=== PATIENT | male | born 1950 | race Caucasian/White ===

== ENCOUNTER 2022-03-16 20:33 | Emergency (ER) | payer OTHER, SELFPAY ==
--- NOTE | ~2022-03-16 | CT_ITS ---
EXAMINATION: CT HEAD WITHOUT CONTRAST CT CERVICAL SPINE WITHOUT CONTRAST CLINICAL INFORMATION: Headache. Atraumatic neck pain. COMPARISON: None. TECHNIQUE: Multidetector CT imaging of the head and cervical spine was performed without the use of intravenous contrast. Multiplanar reformats are reviewed. This CT examination was performed using dose optimization techniques as appropriate, variously including the following: *Automated exposure control *Adjustment of mA and/or kV according to patient size (this includes techniques or standardized protocols for targeted exams where dose is matched to indication/reason for exam; i.e. extremities or head) *Use of iterative reconstruction technique DLP: 995 mGy-cm. FINDINGS: There is no evidence of acute intracranial hemorrhage or territorial infarction. No abnormal mass effect or midline shift is seen. Tavarez to white matter differentiation is well preserved. No extra-axial fluid collections are identified. The ventricles are normal in size. There are couple lacunar infarcts within the right basal ganglia, chronic in appearance. Cavernous carotid calcifications. The osseous structures and soft tissues are normal. The mastoid air cells and visualized portions of the paranasal sinuses are well-aerated. Small rightward projecting osseous septal spur. Atlantooccipital alignment is maintained. The vertebral bodies and posterior elements align normally. No acute fracture or subluxation. Vertebral body heights are maintained. Endplate osteophytes and disc herniations present throughout the cervical spine. Facet arthropathy present throughout cervical spine with ankylosis of the bilateral posterior articular pillar at C2-C3. There are varying degrees of foraminal narrowing throughout the cervical spine, most notably at C5-C6 moderate to severe on the right and moderate on the left. The paraspinal soft tissues are unremarkable. The imaged lung apices are clear CT/CT cervical spine wo con IMPRESSION: No acute intracranial pathology. No cervical spine fracture or malalignment.
[2022-03-16 20:44] VITALS: BP 170/82; PULSE 94; RESP 18; TEMP 37.1; O2SAT 97; BMI 26.6
[2022-03-16 20:53] LABS: MANUAL DIFF FLAG NO
[2022-03-16 20:54] LABS: Basophils Absolute Auto 0.1 X10*3/uL (0.0-0.2); Basophils Percent Auto 0.6 % (0-2); Eosinophils Absolute Auto 1.5 X10*3/uL (0.0-0.4); Eosinophils Percent Auto 11.1 % (0-4); Hematocrit 37.4 % (42.0-52.0); Hemoglobin 12.4 g/dl (14.0-18.0); Imm Gran Abs Auto 0.03 X10*3/uL (0.00-0.03); Imm Gran Pct Auto 0.2 % (0.0-0.4); Lymphocytes Percent Auto 21.3 % (20-40); Mean Corpuscular HGB Conc 33.2 g/dl (31.0-36.0); Mean Corpuscular Hemoglobin 29.6 pg (27.0-33.0); Mean Corpuscular Volume 89.3 fL (80.0-98.0); Mean Platelet Volume 10.7 fL (9.4-12.4); Monocytes Absolute Auto 1.2 X10*3/uL (0.1-1.2); Monocytes Percent Auto 8.9 % (2-11); Neutrophils Percent Auto 57.9 % (45-73); Platelet Count 370 X10*3/uL (160-400); Red Blood Count 4.19 X10*6/uL (4.60-5.80); Red Cell Distribution Width 12.9 % (11.0-16.0); White Blood Count 13.9 X10*3/uL (4.8-10.8)
[2022-03-16 21:07] LABS: Anion Gap 14 (12-20); Blood Urea Nitrogen 19 mg/dL (9-16); Calcium 9.2 mg/dL (8.4-10.2); Carbon Dioxide 23 mmol/L (22-29); Chloride 103 mmol/L (96-108); Creatinine Clr Calc Pharmacy 54.9; Estimated Glomerular Filt Rate > 60; Glucose Random 160 mg/dL (60-115); Potassium 4.5 mmol/L (3.3-5.1); Sodium 135 mmol/L (135-145)
[2022-03-17 00:16] VITALS: BP 171/75; PULSE 80; RESP 18; O2SAT 98
--- NOTE | 2022-03-17 00:39 | ED_ITS ---
HPI - Neck Pain/Injury General Chief Complaint: General Medical Stated Complaint: neck pain, can't turn head Time Seen by Provider: 03/17/22 00:11 Source: patient Mode of arrival: ambulatory Limitations: no limitations History of Present Illness HPI Narrative: Patient with significant past medical history complaining of neck pain and headache for last 2 days no trauma no paresthesia no hand weakness no nausea no vomiting no fever or chills patient denies any sore throat Related Data Previous Rx's Medication Instructions Recorded ibuprofen 600 mg tablet 600 mg PO Q6H PRN pain #20 tabs 03/17/22 Allergies Allergy/AdvReac Type Severity Reaction Status Date / Time No Known Allergies Allergy Verified 03/16/22 20:43 [No Known Allergies*] Review of Systems Review of Systems: Yes all other systems are reviewed and are negative [facility] Social History Social History Advance Directives: No Advance Directives Information Provided: No Physical Exam Vital Signs: Vital Signs: Last Vital Signs Temp 98.8 F 03/16/22 20:44 Pulse 73 03/17/22 02:47 Resp 18 03/17/22 01:38 BP 132/66 03/17/22 02:47 Pulse Ox 97 03/17/22 02:47 O2 Del Method 03/17/22 02:47 BMI result Body Mass Index 26.6 Appearance: Alert. Oriented X3. No acute distress. Eyes: PERRLA, No Nystagmus ENT: Pharynx normal. Oral Mucosa moist Neck: Normal inspection. Diffuse muscle spasm no midline tenderness no cervical lymphadenopathy CVS: Normal heart rate and rhythm. Pulses normal. Respiratory: No respiratory distress. Equal air entry bilateral, no wheezing/rales/rhonchi Abdomen: Soft and nontender. Bowel sounds are present, no mass palpable, no CVA tenderness Skin: Skin warm and dry. Normal skin color. Normal skin turgor. Extremities: No lower extremity edema. No calf tenderness Neuro: Oriented X 3. No motor deficit. No sensory deficit.No cerebellar signs , cranial nerves II-XII intact MDM - Neck Pain/Injury Differential Diagnosis Differential diagnosis: Likely disc disorder of cervical region and strain of neck muscle Lab Data Attestation: I reviewed the patient's lab results. Result diagrams: 03/16/22 20:49 03/16/22 20:49 Labs: Lab Results 03/16/22 03/16/22 Range/Units 20:49 20:49 WBC 13.9 H (4.8-10.8) X10*3/uL RBC 4.19 L (4.60-5.80) X10*6/uL Hgb 12.4 L (14.0-18.0) g/dl Hct 37.4 L (42.0-52.0) % MCV 89.3 (80.0-98.0) fL MCH 29.6 (27.0-33.0) pg MCHC 33.2 (31.0-36.0) g/dl RDW 12.9 (11.0-16.0) % Plt Count 370 (160-400) X10*3/uL MPV 10.7 (9.4-12.4) fL Immature Gran % (Auto) 0.2 (0.0-0.4) % Neut % (Auto) 57.9 (45-73) % Lymph % (Auto) 21.3 (20-40) % [place]cy % (Auto) 8.9 (2-11) % Eos % (Auto) 11.1 H (0-4) % Baso % (Auto) 0.6 (0-2) % Lymph # (Auto) 3.0 (1.2-4.9) X10*3/uL [place] # (Auto) 1.2 (0.1-1.2) X10*3/uL Eos # (Auto) 1.5 H (0.0-0.4) X10*3/uL Baso # (Auto) 0.1 (0.0-0.2) X10*3/uL Abs Immat Gran (auto) 0.03 (0.00-0.03) X10*3/uL Absolute Neuts (auto) 8.0 (2.0-8.3) x10*3/uL Absolute Nucleated RBC 0.000 (0.0-0.012) X10*3/uL Nucleated RBC % (auto) 0.0 (0.0-0.2) /100WBC Sodium 135 (135-145) mmol/L Potassium 4.5 (3.3-5.1) mmol/L Chloride 103 (96-108) mmol/L Carbon Dioxide 23 (22-29) mmol/L Anion Gap 14 (12-20) BUN 19 H (9-16) mg/dL Creatinine 1.17 (0.5-1.4) mg/dL Estim Creat Clear Calc 54.9 Estimated GFR > 60 Random Glucose 160 H (60-115) mg/dL Calcium 9.2 (8.4-10.2) mg/dL Discharge Plan Discharge Clinical Impression: Cervical paraspinal muscle spasm Patient Disposition: Home, Self-Care Instructions: Cervical Sprain (ED) Additional Instructions: Likely have muscle spasm secondary to strain Take ibuprofen for pain , apply ice pack Prescriptions: New ibuprofen 600 mg tablet 600 mg PO Q6H PRN (Reason: pain) Qty: 20 0RF Interventions: ED Discharge Assessment Last Done: 03/17/22 02:49 Discharge Date/Time: 03/17/22 02:49
[2022-03-17] MEDS: oxyCODONE HCl Immed Release 5 MG TABLET PO (00:53)
[2022-03-17 01:38] VITALS: BP 155/77; PULSE 73; RESP 18; O2SAT 98
[2022-03-17 02:47] VITALS: BP 132/66; PULSE 73; O2SAT 97
== END 2022-03-17 02:49 | disposition home or self-care (01) ==
PROVIDERS: Emergency Medicine; Emergency Provider Internal Medicine; PCP Internal Medicine
DX: M62.830 Muscle spasm of back (principal); R51.9 Headache, unspecified
CPT/HCPCS: 36415; 70450; 72125; 80048; 85025; 99284

== ENCOUNTER 2025-06-16 08:59 | Outpatient (AMB) | payer MEDICAID, SELFPAY ==
--- NOTE | 2025-06-16 09:11 | MHC.PC.OV ---
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[employer] Food Products Language: Bur[place]ian Accompanied by: Self / Same As Patient Allergies No Known Allergies (No Known Allergies*) Allergy (Verified 06/16/25 09:13) Medication List - Last Reconciled 06/16/25 by Lele Ferreira MD acetaminophen (Tylenol Extra Strength) 1,000 mg PO Q6H PRN atorvastatin (Lipitor) 40 mg PO DAILY ciclopirox 0.77% 1 appl topical BID ibuprofen 600 mg PO Q6H PRN levothyroxine (Synthroid) 75 mcg PO DAILY lisinopril 10 mg PO DAILY metformin 1,000 mg PO BID Tobacco use date assessed: 06/16/25 Fall risk assessment: No Falls in past year Last assessed Fall Risk: 06/16/25 Dental Screening Dental Screen Date: 06/16/25 Did you have a dental visit in the last 12 months?: No Did you have a dental problem in the last 6 months where you did not have access to dental care?: No Was dental information given to patient?: No HPI HPI Comments History of Present Illness Details The patient is a 74-year-old male presenting with medication refills and to establish care. The patient has symptoms affecting his nails and joints, with chronic joint pain in the fingers and knees, and dry skin on the knees. He uses Tylenol for pain, which provides minimal relief. He has diabetes mellitus, managed with metformin, and suspects it may affect his nail condition. The patient also has hypertension, hyperlipidemia, and hypothyroidism, treated with lisinopril, atorvastatin, and Synthroid respectively. He has a significant smoking history, having smoked for 20 years, but quit 15 years ago. He has not undergone a CT scan of the chest or an abdominal ultrasound for aortic aneurysm screening. Family history includes lung cancer in his father, who was a smoker. 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 1. Little interest or pleasure in doing things: several days 2. Feeling down, depressed, or hopeless: several days 3. Trouble falling or staying asleep, or sleeping too much: several days 4. Feeling tired or having little energy: several days 5. Poor appetite or overeating: several days 6. Feeling bad about yourself - or that you are a failure or have let yourself or your family down: several days 7. Trouble concentrating on things, such as reading the newspaper or watching television: more than half the days 8. Moving or speaking so slowly that other people could have noticed. Or the opposite - being so fidgety or restless that you have been moving around a lot more than usual: several days 9. Thoughts that you would be better off or of hurting yourself in some way: not at all Total score: 9 Source: Developed by Drs. Ortiz Sierra, Radha Gordon, Rizwan Kay and colleagues, with an educational rachell from [employer]. Thrive Questionnaire Date Thrive assessed: 06/16/25 I am a: Patient What is your living situation today?: I have a steady place to live Within the past 12 months, did the food you bought not last and you didn't have the money to get more?: Never true Within the past 12 months, did you worry whether your food would run out before you got money to buy more?: Never true Do you have trouble paying for medicines?: No Do you have trouble getting transportation to medical appointments?: Yes Do you have trouble paying your heating and electricity bill?: No Do you have trouble taking care of your child, family member or friend?: No Do you have trouble with day-to-day activities such as bathing, preparing meals, shopping, managing finances, etc.?: No Are you currently unemployed and looking for a job?: Yes Are you interested in more education?: No Please select the resources that you would like help with: None Currently or been in a relationship where the following occur: No concerns reported THRIVE Score: 1 AUDIT C Alcohol Use Questionnaire (AUDIT-C) 1. How often do you have a drink containing alcohol?: Monthly or less 2. How many drinks containing alcohol do you have on a typical day when you are drinking?: 1 or 2 3. How often do you have six or more drinks on one occasion?: Never Total Score: 1 BRITTANEY-7 AMB Questionnaire BRITTANEY-7 Date BRITTANEY - 7 assessed: 06/16/25 Feeling nervous, anxious, or on edge: 2 = More than half the days Not being able to stop or control worryin = More than half the days Worrying too much about different things: 2 = More than half the days Trouble relaxin = More than half the days Being so restless that it is hard to sit still: 2 = More than half the days Becoming easily annoyed or irritable: 2 = More than half the days Feeling afraid as if something awful might happen: 1 = Several days Total BRITTANEY-7 score (0-4 normal; 5-9 mild; 10-14 moderate; 15-21 severe): 13 Source: Developed by Drs. Ortiz Sierra, Radha Gordon, Rizwan Kay and colleagues, with an educational rachell from [employer]. Review of Systems Const Details: Positives are in BOLD Constitutional: No Weight Change, No Fever, No Chills, No Night Sweats, No Fatigue, No Malaise ENT/Mouth: No Hearing Changes, No Ear Pain, No Nasal Congestion, No Sinus Pain, No Hoarseness, No sore throat, No Rhinorrhea, No Swallowing Difficulty Eyes: No Eye Pain, No Swelling, No Redness, No Foreign Body, No Discharge, No Vision Changes Cardiovascular: No Chest Pain, No SOB, No PND, No Dyspnea on Exertion, No Orthopnea, No Claudication, No Edema, No Palpitations Respiratory: No Cough, No Sputum, No Wheezing, No Smoke Exposure, No Dyspnea Gastrointestinal: No Nausea, No Vomiting, No Diarrhea, No Constipation, No Pain, No Heartburn, No Anorexia, No Dysphagia, No Hematochezia, No Melena, No Flatulence, No Jaundice Genitourinary: No Dysmenorrhea, No DUB, No Dyspareunia, No Dysuria, No Urinary Frequency, No Hematuria, No Urinary Incontinence, No Urgency, No Flank Pain, No Urinary Flow Changes, No Hesitancy Musculoskeletal: No Arthralgias, No Myalgias, No Joint Swelling, No Joint Stiffness, No Back Pain, No Neck Pain, No Injury History Skin: No Skin Lesions, No Pruritis, No Hair Changes, No Breast/Skin Changes, No Nipple Discharge Neuro: No Weakness, No Numbness, No Paresthesias, No Loss of Consciousness, No Syncope, No Dizziness, No Headache, No Coordination Changes, No Recent Falls Psych: No Anxiety/Panic, No Depression, No Insomnia, No Personality Changes, No Delusions, No Rumination, No SI/HI/AH/VH, No Social Issues, No Memory Changes, No Violence/Abuse Hx., No Eating Concerns Heme/Lymph: No Bruising, No Bleeding, No Transfusions History, No Lymphadenopathy Endocrine: No Polyuria, No Polydipsia, No Temperature Intolerance Physical exam (Primary Care) Vital Signs: Last Vital Signs Temp 97.1 F 06/16/25 09:12 Pulse 79 06/16/25 09:12 Resp 18 06/16/25 09:12 BP 156/60 H 06/16/25 09:12 Pulse Ox 96 06/16/25 09:12 Oxygen Delivery Method Room Air 06/16/25 09:12 BMI result Body Mass Index 25.2 Tobacco/Smoking Status: Tobacco use Status Tobacco use date assessed 06/16/25 06/16/25 09:33 Patient Tobacco Use Status Never used Tobacco 06/16/25 09:33 e-Cigarette/Vaping Use Never Used 06/16/25 09:33 PHQ-9: PHQ-9 Score PHQ-9: Total score 9 06/16/25 11:37 Thrive Assessment: Date of Thrive Assessment Date Thrive assessed 06/16/25 06/16/25 09:33 Currently or been in a relationship where the following occur: No concerns reported Const Other: Pertinent findings are in BOLD GENERAL APPEARANCE NAD, activity normal for age, well developed/ well nourished, no cyanosis, pallor, or diaphoresis. EYES lids/conjunctiva normal. EARS/NOSE/THROAT Mucous membranes moist, nares normal, lips/teeth normal uvula midline without oral pharyngeal erythema, exudate or swelling TMs normal bilaterally. No lymphangitis/lymphedema. HEAD/NECK normocephalic atraumatic, no facial trauma, neck is supple. RESPIRATORY respiratory effort normal, speaks in full sentences, no tripod position, no accessory muscle use. Lungs clear to auscultation without rhonchi, wheezes, rales CARDIAC Regular rate and rhythm, no edema. ABDOMINAL Soft, ND/NT. No evidence of fluid wave. No pulsatile masses on exam, rebound tenderness, Anderson sign or pain over Mcburney's point. MUSCLES/EXTREMITIES No abnormal range of motion, no swelling. SKIN Warm, pink and dry. No rashes, dermatoses, petechiae or lesions. NEUROLOGICAL Speech is clear and appropriate. Normal level of consciousness. Gait and coordination are normal. 5/5 strength in all extremities. PSYCH Normal mood and affect. Judgement/competence is appropriate Coding Level of Care Code New Pt Level 4 (54783) Diagnoses Primary hypertension I10 Hypertension type: primary hypertension Arthritis M19.90 Pitting of nails L60.8 Type 2 diabetes mellitus without complication, without long-term current use of insulin E11.9 Diabetes mellitus complication status: without complication Diabetes mellitus correction insulin use: without correction use Hyperlipidemia, unspecified hyperlipidemia type E78.5 Hyperlipidemia type: unspecified Hypothyroidism, unspecified type E03.9 Hypothyroidism type: unspecified Health care maintenance Z00.00 Assessment & Plan Assessment & Plan (1) HTN (hypertension): Code(s): I10 - Essential (primary) hypertension Category: Medical Qualifiers: Hypertension type: primary hypertension Qualified Code(s): I10 - Essential (primary) hypertension Plan: The patient's blood pressure management will continue with lisinopril, and regular monitoring will be advised. (2) Arthritis: Code(s): M19.90 - Unspecified osteoarthritis, unspecified site Category: Medical Plan: - Rheumatology referral for suspect psoriasis arthritis. (3) Pitting of nails: Code(s): L60.8 - Other nail disorders Category: Medical Plan: Continue previously prescribed cyclopirox for suspected fungal infection. - Might psoriasis, referred to rheumatology. (4) DM2 (diabetes mellitus, type 2): Code(s): E11.9 - Type 2 diabetes mellitus without complications Category: Medical Qualifiers: Diabetes mellitus complication status: without complication Diabetes mellitus meterman insulin use: without meterman use Qualified Code(s): E11.9 - Type 2 diabetes mellitus without complications Plan: - Repeat A1C ordered. - Continue Metformin. - Ophto referral for eye exam. - Podiatry referral for foot exam. (5) HLD (hyperlipidemia): Code(s): E78.5 - Hyperlipidemia, unspecified Category: Medical Qualifiers: Hyperlipidemia type: unspecified Qualified Code(s): E78.5 - Hyperlipidemia, unspecified Plan: Continue Atorvastatin. - Repeat labs ordered. (6) Hypothyroidism: Code(s): E03.9 - Hypothyroidism, unspecified Category: Medical Qualifiers: Hypothyroidism type: unspecified Qualified Code(s): E03.9 - Hypothyroidism, unspecified Plan: Continue Synthroid - Repeat labs ordered. (7) Health care maintenance: Code(s): Z00.00 - Encounter for general adult medical examination without abnormal findings Category: Medical Plan: HIV, HEP C, Hep B screening ordered. AAA US, CT chest ordered. Plan As above Orders: Orders Comprehensive Met. Panel Today Z00.00 - Encounter for general adult medical examination without abnormal findings Complete Blood Count Auto Diff Today Z00.00 - Encounter for general adult medical examination without abnormal findings CT lung screening Today Z72.0 - Tobacco use Hemoglobin A1c Today E11.9 - Type 2 diabetes mellitus without complications Lipid Panel Today E78.5 - Hyperlipidemia, unspecified Prostate Specific Antigen Today Z00.00 - Encounter for general adult medical examination without abnormal findings TSH reflex Free T4 Today E03.9 - Hypothyroidism, unspecified US abdominal aortic aneurysm Today Z72.0 - Tobacco use Referrals Rheumatology Referral L60.8 - Other nail disorders, M19.90 - Unspecified osteoarthritis, unspecified site Podiatry Referral E11.9 - Type 2 diabetes mellitus without complications Ophthalmology Referral E11.9 - Type 2 diabetes mellitus without complications
[2025-06-16 09:12] VITALS: BP 156/60; PULSE 79; RESP 18; TEMP 36.2; O2SAT 96; BMI 25.2
== END 2025-06-16 10:38 | disposition home or self-care (01) ==
LOC: HO.HMCH 09:00
PROVIDERS: PCP Internal Medicine; Visit Provider Internal Medicine
DX: I10 Essential (primary) hypertension (principal); M19.90 Unspecified osteoarthritis, unspecified site; L60.8 Other nail disorders; E11.9 Type 2 diabetes mellitus without complications; E78.5 Hyperlipidemia, unspecified; E03.9 Hypothyroidism, unspecified; Z00.00 Encounter for general adult medical examination without abnormal findings

== ENCOUNTER → 2025-06-16 08:59 | Outpatient (BNVA) | payer MEDICARE, MEDICAID, SELFPAY | PROVIDERS: Visit Provider Internal Medicine | DX: Z00.00 Encounter for general adult medical examination without abnormal findings (principal); I10 Essential (primary) hypertension; E78.5 Hyperlipidemia, unspecified; E03.9 Hypothyroidism, unspecified; M79.645 Pain in left finger(s); M79.644 Pain in right finger(s); M25.561 Pain in right knee; M25.562 Pain in left knee; M19.90 Unspecified osteoarthritis, unspecified site; L60.8 Other nail disorders; E11.9 Type 2 diabetes mellitus without complications | CPT/HCPCS: 96127; 99202 ==

== ENCOUNTER 2025-08-03 07:50 | Outpatient (REF) | payer OTHER, SELFPAY ==
[2025-08-03 10:48] LABS: Hematocrit 39.4 % (42.0-52.0); Hemoglobin 12.8 g/dl (14.0-18.0); Imm Gran Abs Auto 0.03 X10*3/uL (0.00-0.03); Imm Gran Pct Auto 0.2 % (0.0-0.4); Lymphocytes Absolute Auto 3.6 X10*3/uL (1.2-4.9); MANUAL DIFF FLAG SCAN; Mean Corpuscular HGB Conc 32.5 g/dl (31.0-36.0); Mean Corpuscular Hemoglobin 30.5 pg (27.0-33.0); Mean Corpuscular Volume 94.0 fL (80.0-98.0); NRBC Abs Auto 0.000 X10*3/uL (0.0-0.012); NRBC Pct Auto 0.0 /100WBC (0.0-0.2); Platelet Count 399 X10*3/uL (160-400); Red Blood Count 4.19 X10*6/uL (4.60-5.80); SCAN SMEAR FLAG 1; White Blood Count 12.6 X10*3/uL (4.8-10.8)
[2025-08-03 11:13] LABS: Alanine Aminotransferase 21 U/L (0-40); Albumin Level 4.5 g/dL (3.5-5.0); Alkaline Phosphatase 63 U/L (39-117); Anion Gap 11 (12-20); Aspartate Amino Transferase 26 U/L (5-37); Blood Urea Nitrogen 18 mg/dL (9-16); Calcium 9.1 mg/dL (8.4-10.2); Carbon Dioxide 27 mmol/L (22-29); Chloride 106 mmol/L (96-108); Cholesterol 206 mg/dL (<200); Estimated Glomerular Filt Rate > 60; HDL Cholesterol 49 mg/dL (>40); Potassium 4.4 mmol/L (3.3-5.1); Prostate Specific Antigen 0.76 ng/mL (<0.05-4.0); Sodium 140 mmol/L (135-145); Total Protein 7.6 g/dL (6.5-8.0); Triglycerides 166 mg/dL (<150)
== END 2025-08-03 07:51 | disposition home or self-care (01) ==
LOC: HO.10HDL 07:50
PROVIDERS: Visit Provider Internal Medicine
DX: Z00.00 Encounter for general adult medical examination without abnormal findings (principal); Z12.5 Encounter for screening for malignant neoplasm of prostate; E03.9 Hypothyroidism, unspecified; E78.5 Hyperlipidemia, unspecified; E11.9 Type 2 diabetes mellitus without complications
CPT/HCPCS: 36415; 80053; 80061; 83036; 84153; 84443; 85025

== ENCOUNTER 2025-08-07 08:21 | Outpatient (REF) | payer OTHER, SELFPAY ==
[2025-08-07 08:59] LABS: Reticulocytes Absolute 0.087 X10*6/uL (0.026-0.095)
[2025-08-07 09:30] LABS: Iron 69 mcg/dL (45-160); Percent Iron Saturation 27 % (15-50); Total Iron Binding Capacity 254 mcg/dL (228-428); Unsaturated Iron Binding 185 ug/dL
[2025-08-07 10:00] LABS: Folate 7.2 ng/mL (> or = 4.0); Vitamin B12 615 pg/mL (200-900)
== END 2025-08-07 08:22 | disposition home or self-care (01) ==
LOC: HO.LAB 08:21
PROVIDERS: PCP Internal Medicine; Visit Provider Internal Medicine
DX: Z13.6 Encounter for screening for cardiovascular disorders (principal); D64.9 Anemia, unspecified
CPT/HCPCS: 36415; 82607; 82746; 83090; 83540; 83921; 85045

== ENCOUNTER 2025-09-08 11:12 | Outpatient (AMB) | payer OTHER, SELFPAY ==
--- NOTE | 2025-09-08 11:18 | MHC.PC.OV ---
"Vital Signs 09/08/25 11:22 Height 5 ft 7 in Weight 170 lb 6 oz BMI 26.7 BP 160/76 H Blood Pressure Location Rt brachial Position Sitting Pulse 89 Pulse Source Pulse Oximeter Temp 97.3 F Temp Source Temporal Artery Scan Pulse Oximetry (%) 98 Oxygen Delivery Method Room Air Intake Visit Reasons: follow up Intake Note: Patient is here to follow up on DM, HLD, Hypothyroidism. Clinical Transformation Specialist Required: No Chemical Processing Technician: Not Required per policy Accompanied by: Self / Same As Patient Allergies No Known Allergies (No Known Allergies*) Allergy (Verified 09/08/25 11:21) Medication List - Last Reconciled 09/08/25 by Lele Ferreira MD acetaminophen (Tylenol Extra Strength) 1,000 mg (2 x 500 mg) PO Q6H PRN 3 months atorvastatin (Lipitor) 80 mg (2 x 40 mg) PO DAILY 3 months [Cane As directed] ciclopirox 0.77% 1 appl topical BID 3 months [Grab bars As directed] ibuprofen 600 mg PO Q6H PRN levothyroxine (Synthroid) 75 mcg PO DAILY 3 months lisinopril 10 mg PO DAILY 3 months metformin 1,000 mg PO BID 3 months [Shower Chair As directed] Tobacco use date assessed: 09/08/25 Fall risk assessment: No Falls in past year Last assessed Fall Risk: 09/08/25 Dental Screening Dental Screen Date: 06/16/25 HPI HPI Comments History of Present Illness Details The patient is a 74 year old M with PMH of HTN, HLD, nail pitting, back pain, hypothyroidism, and DM presenting for management of chronic conditions including back pain, depression, and high blood pressure. The patient has a history of a herniated disc, which causes significant discomfort and limitations in daily activities. The associated pain affects the lower back, neck, and right leg. The patient previously underwent physical therapy, which did not provide any benefit, and declines surgical intervention. The patient reports a recent onset of depression and requested medication for it. The patient links the depression to a reluctance to leave home, which the patient believes contributes to an elevated blood pressure. The patient denies any thoughts of self-harm or harming others. Other chronic conditions include diabetes and high cholesterol, for which the patient is on treatment. The patient also has a history of psoriasis and leukocytosis, with a lab result of 12.6 noted in 2024. The nails on the patient's hands are reportedly improving. Previous referrals to rheumatology and for a colonoscopy were canceled because the patient did not have insurance at the time. An order for a cane and bathroom chair was also placed, but the items were never received. 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 pain Arthritis of neck Surgical History H/O splenectomy Social History Household Members: Children Housing: Apartment Alcohol intake: never Patient Tobacco Use Status: Former Tobacco user Tobacco use type: Cigarette e-Cigarette/Vaping Use: Never Used Second Hand Smoke Exposure: Yes service: No Current occupational status: retired Current occupational exposures/hazards: No Cognitive needs: Yes Hearing needs: Yes Vision needs: Yes Questionnaire Thrive Questionnaire Date Thrive assessed: 06/16/25 I am a: Patient What is your living situation today?: I have a steady place to live Within the past 12 months, did the food you bought not last and you didn't have the money to get more?: Never true Within the past 12 months, did you worry whether your food would run out before you got money to buy more?: Never true Do you have trouble paying for medicines?: No Do you have trouble getting transportation to medical appointments?: Yes Do you have trouble paying your heating and electricity bill?: No Do you have trouble taking care of your child, family member or friend?: No Do you have trouble with day-to-day activities such as bathing, preparing meals, shopping, managing finances, etc.?: No Are you currently unemployed and looking for a job?: Yes Are you interested in more education?: No Please select the resources that you would like help with: None Currently or been in a relationship where the following occur: No concerns reported THRIVE Score: 1 BRITTANEY-7 AMB Questionnaire BRITTANEY-7 Date BRITTANEY - 7 assessed: 06/16/25 Source: Developed by Drs. Ortiz Sierra, RadhaRizwan Early and colleagues, with an educational rachell from [employer]. Review of Systems Const Details: As per HPI. Physical exam (Primary Care) Vital Signs: Last Vital Signs Temp 97.3 F 09/08/25 11:22 Pulse 89 09/08/25 11:22 BP 160/76 H 09/08/25 11:22 Pulse Ox 98 09/08/25 11:22 Oxygen Delivery Method Room Air 09/08/25 11:22 BMI result Body Mass Index 26.7 Tobacco/Smoking Status: Tobacco use Status Tobacco use date assessed 09/08/25 09/08/25 11:21 Patient Tobacco Use Status Former Tobacco user 09/08/25 11:19 Tobacco use type Cigarette 09/08/25 11:19 e-Cigarette/Vaping Use Never Used 09/08/25 11:19 Thrive Assessment: Date of Thrive Assessment Date Thrive assessed 06/16/25 09/08/25 11:19 Currently or been in a relationship where the following occur: No concerns reported Const Other: Pertinent findings are in BOLD GENERAL APPEARANCE NAD, activity normal for age, well developed/ well nourished, no cyanosis, pallor, or diaphoresis. EYES lids/conjunctiva normal. EARS/NOSE/THROAT Mucous membranes moist, nares normal, lips/teeth normal uvula midline without oral pharyngeal erythema, exudate or swelling TMs normal bilaterally. No lymphangitis/lymphedema. HEAD/NECK normocephalic atraumatic, no facial trauma, neck is supple. RESPIRATORY respiratory effort normal, speaks in full sentences, no tripod position, no accessory muscle use. Lungs clear to auscultation without rhonchi, wheezes, rales CARDIAC Regular rate and rhythm, no edema. ABDOMINAL Soft, ND/NT. No evidence of fluid wave. No pulsatile masses on exam, rebound tenderness, Anderson sign or pain over Mcburney's point. MUSCLES/EXTREMITIES No abnormal range of motion, no swelling. SKIN Warm, pink and dry. No rashes, dermatoses, petechiae or lesions. Nail pitting. NEUROLOGICAL Speech is clear and appropriate. Normal level of consciousness. Gait and coordination are normal. 5/5 strength in all extremities. PSYCH Normal mood and affect. Judgement/competence is appropriate Coding Level of Care Code Est Pt Level 4 (12945) Diagnoses Current moderate episode of major depressive disorder, unspecified whether recurrent F32.1 Major depression recurrence: unspecified whether recurrent Active/Remission status: currently active Major depression episode severity: moderate Leukocytosis D72.829 Pitting of nails L60.8 Arthritis M19.90 Tobacco consumption Z72.0 Type 2 diabetes mellitus without complication, without long-term current use of insulin E11.9 Diabetes mellitus complication status: without complication Diabetes mellitus exterminator helper insulin use: without exterminator helper use Primary hypertension I10 Hypertension type: primary hypertension Herniated disc, cervical M50.20 Time Spent (min) 45 Assessment & Plan Assessment & Plan (1) MDD (major depressive disorder): Code(s): F32.9 - Major depressive disorder, single episode, unspecified Category: Medical Qualifiers: Major depression recurrence: unspecified whether recurrent Active/Remission status: currently active Major depression episode severity: moderate Qualified Code(s): F32.1 - Major depressive disorder, single episode, moderate Plan: - Prescribed duloxetine 20 mg to be taken two times per day to help with mood. - A referral will be placed for psychiatry. - Patient was previously referred to counseling but he was never able to see them due to insurance problems. - Patient denies any SI or HI. (2) Leukocytosis: Code(s): D72.829 - Elevated white blood cell count, unspecified Category: Medical Plan: Repeat labs ordered. And depending on repeat labs we will consider Hematology referral. Patient does not have any current signs or symptoms of infection. He has suspected psoriasis and rheumatolgoy referral was placed. (3) Pitting of nails: Code(s): L60.8 - Other nail disorders Category: Medical Plan: Continue Ciclopirox as the patient found it helpful. Psoriasis suspected vs fungal infection. Prior referral to rheumatology was not completed due to insurance issues. New referral to rheumatology placed. (4) Arthritis: Code(s): M19.90 - Unspecified osteoarthritis, unspecified site Category: Medical Plan: Suspected psoriasis arthritis. Rheumatology referral pending. Continue Ibuprofen 600 mg Q6 for pain abd Tylenol 1000 mg Q6hr PRN. (5) Tobacco consumption: Code(s): Z72.0 - Tobacco use Category: Social Hx Plan: Pulm referral placed for lung cancer screening. (6) DM2 (diabetes mellitus, type 2): Code(s): E11.9 - Type 2 diabetes mellitus without complications Category: Medical Qualifiers: Diabetes mellitus complication status: without complication Diabetes mellitus penitentiary insulin use: without penitentiary use Qualified Code(s): E11.9 - Type 2 diabetes mellitus without complications Plan: Continue Metformin. Podiatry referral. Ophthalmo referral placed. (7) HTN (hypertension): Code(s): I10 - Essential (primary) hypertension Category: Medical Qualifiers: Hypertension type: primary hypertension Qualified Code(s): I10 - Essential (primary) hypertension Plan: Patient's blood pressure continues to be elevated. Started the patient on Amlodipine 5 mg. Continue Lisinopril 10 mg. (8) Herniated disc, cervical: Code(s): M50.20 - Other cervical disc displacement, unspecified cervical region Category: Medical Plan: - Prescribed gabapentin for pain management. - The starting dose is 100 mg once per day for one week, then increase to 100 mg two times per day for one week, and then to a final dose of 100 mg three times per day. - Patient tried PT in the past and he reported no improvement. Plan I discussed the management plan for the patient's various health issues. For the back pain, I prescribed gabapentin, explaining that it is for the pain and may take some time to become effective. I provided a slow titration schedule, starting at 100 mg once daily and increasing over a few weeks to three times daily. For the patient's reported depression, I prescribed duloxetine 20 mg twice daily to help improve mood. To manage the high blood pressure, I started amlodipine 5 mg. I acknowledged the previously missed specialist appointments due to insurance issues and confirmed that I was placing new referrals for a colonoscopy, rheumatology, psychiatry, ophthalmology, podiatry, and pulmonology. I advised the patient on how to schedule the rheumatology appointment. I also ordered blood work, noting that it did not require fasting and could be done today. We will follow up in four months to assess the response to the new medications and the status of the specialty consultations. Orders: Orders YECENIA Reflex Titer and Pattern Today L60.8 - Other nail disorders US abdominal aortic aneurysm Today Z72.0 - Tobacco use Complete Blood Count Auto Diff Today D72.829 - Elevated white blood cell count, unspecified Referrals Psychiatry Referral F32.9 - Major depressive disorder, single episode, unspecified Open Access Screening Colonoscopy Referral Z12.11 - Encounter for screening for malignant neoplasm of colon, Z12.12 - Encounter for screening for malignant neoplasm of rectum Rheumatology Referral L60.8 - Other nail disorders, M19.90 - Unspecified osteoarthritis, unspecified site Pulmonology Referral Z72.0 - Tobacco use Podiatry Referral E11.9 - Type 2 diabetes mellitus without complications Ophthalmology Referral E11.9 - Type 2 diabetes mellitus without complications Medications: New gabapentin 100 mg PO TID 90 caps 3RF amlodipine 5 mg PO DAILY 30 tabs 3RF duloxetine 20 mg PO BID 60 caps 3RF"
[2025-09-08 11:22] VITALS: BP 160/76; PULSE 89; TEMP 36.3; O2SAT 98; BMI 26.7
== END 2025-09-08 12:12 | disposition home or self-care (01) ==
LOC: HO.HMCH 11:12
PROVIDERS: PCP Internal Medicine; Visit Provider Internal Medicine
DX: E11.9 Type 2 diabetes mellitus without complications (principal); F32.1 Major depressive disorder, single episode, moderate; D72.829 Elevated white blood cell count, unspecified; L60.8 Other nail disorders; M19.90 Unspecified osteoarthritis, unspecified site; Z72.0 Tobacco use; I10 Essential (primary) hypertension; M50.20 Other cervical disc displacement, unspecified cervical region

== ENCOUNTER → 2025-09-08 11:12 | Outpatient (BNVA) | payer OTHER, SELFPAY | PROVIDERS: PCP Internal Medicine; Visit Provider Internal Medicine | DX: I10 Essential (primary) hypertension (principal); E03.9 Hypothyroidism, unspecified; E11.9 Type 2 diabetes mellitus without complications; F32.A Depression, unspecified; E78.00 Pure hypercholesterolemia, unspecified; L40.9 Psoriasis, unspecified; F32.1 Major depressive disorder, single episode, moderate; D72.829 Elevated white blood cell count, unspecified; L60.8 Other nail disorders; M19.90 Unspecified osteoarthritis, unspecified site; M50.20 Other cervical disc displacement, unspecified cervical region; Z87.891 Personal history of nicotine dependence | CPT/HCPCS: 99212 ==